=== PATIENT | female | born 2000 | race Caucasian/White ===

== ENCOUNTER 2021-10-06 12:02 | Inpatient (IN) ==
[2021-10-06] MEDS ORDERED: Lactated Ringers 1000 ml BAG 1,000 ML IV ONE ×2 (13:43→22:41)
[2021-10-06] MEDS ORDERED: Buffered Lidocaine 1% SYRIN 1 ml INTRADERM ONE (13:43)
[2021-10-06 16:57] LABS: Rapid COVID-19 Molecular Undetected (Undetected)
[2021-10-06 17:44] LABS: Urine Benzodiazepine Screen None Detected (None Detect); Urine Cannabinoids Screen None Detected (None Detect); Urine Opiates Screen None Detected (None Detect)
[2021-10-06] MEDS ORDERED: Ondansetron ODT 4 mg TAB 4 MG TAB SL PRN (19:09)
[2021-10-06] MEDS ORDERED: OBEPIDURAL 0 ML EPIDURAL ONE (21:41)
[2021-10-06 21:53] LABS: ABS Lymphocytes 1.2 10^3/ul (1.0-4.8); ABS Monocytes 0.4 10^3/ul (0-0.8); Eosinophil % 0.1 %; Hematocrit 42 % (35-47); Hemoglobin 14.5 g/dL (12.0-16.0); Lymphocyte % 10.4 %; Mean Corpuscular HGB Conc 35 g/dL (31-36); Mean Corpuscular Hemoglobin 32 pg (27-31); Mean Corpuscular Volume 91 fL (80-97); Mean Platelet Volume 8.7 fL (7.4-10.4); Platelet Count 166 10^3/uL (150-450); Red Blood Count 4.56 10^6 /uL (3.70-4.87); Red Cell Distribution Width 13 % (10-15); White Blood Count 11.6 10^3/uL (3.5-10.8)
[2021-10-06] MEDS ORDERED: Ammonia Inhalant 1 EA AMP ONE (22:06)
[2021-10-06] MEDS ORDERED: EPHEDrine (Pressors) 50 MG/ML VIAL ONE (22:22)
[2021-10-06] MEDS ORDERED: Lactated Ringers 1000 ml BAG 500 ML IV PRN (22:41)
[2021-10-06] MEDS ORDERED: Sodium Citrate/Citric Acid LIQ 15 ML UDC PO PRN (22:41)
[2021-10-06] MEDS ORDERED: EPHEDrine (Pressors) 50 MG/ML VIAL IV PUSH PRN ×2 (22:41)
[2021-10-06] MEDS ORDERED: Phenylephrine 40 mcg/mL 10mL (400mcg) SYRINGE IV PUSH PRN ×2 (22:41)
[2021-10-06] MEDS ORDERED: fentaNYL 100 mcg/2 ml 50 MCG/ML VIAL ONE (22:55)
[2021-10-06] MEDS ORDERED: Ropivacaine 300 MG in NS 0.9% 250 ml 240 ML EPIDURAL SCH (23:00)
[2021-10-06] MEDS ORDERED: Lactated Ringers 1000 ml BAG 1,000 ML IV SCH ×2 (23:00)
[2021-10-06 23:36] LABS: Urine Appearance Clear; Urine Bilirubin Negative (Negative); Urine Blood Negative (Negative); Urine Color Yellow; Urine Glucose Negative (Negative); Urine Ketones 2+ (Negative); Urine Nitrite Negative (Negative); Urine Protein 2+(100 mg/dL) (Negative); Urine Specific Gravity 1.021 (1.002-1.030); Urine Urobilinogen Negative (Negative)
[2021-10-06] MEDS ORDERED: Lidocaine 1% w EPI 1:200,000 SDV 30 ML VIAL ONE (23:41)
[2021-10-06 23:45] LABS: Urine Bacteria Absent (Absent); Urine Red Blood Cell Trace(0-2/hpf) (Absent); Urine White Blood Cell Trace(0-5/hpf) (Absent)
[2021-10-07] MEDS ORDERED: Oxytocin in LR 20 UNITS/1,000 ML BAG IVPB ONE (00:39)
[2021-10-07] MEDS ORDERED: Dibucaine 1% OINT 28.35 GM TUBE PR PRN (02:53)
[2021-10-07] MEDS ORDERED: Witch Hazel PAD JAR TOPICAL PRN (02:53)
[2021-10-07] MEDS ORDERED: Oxytocin in LR 20 UNITS/1,000 ML BAG IVPB SCH (03:00)
[2021-10-07] MEDS ORDERED: Lactated Ringers 1000 ml BAG 1,000 ML IV SCH (03:00)
[2021-10-07] MEDS ORDERED: Lidocaine 1% VIAL 10 MG/ML VIAL ONE (07:13)
[2021-10-08 07:26] LABS: ABS Lymphocytes 2.1 10^3/ul (1.0-4.8); ABS Monocytes 0.5 10^3/ul (0-0.8); ABS Neutrophils 5.9 10^3/ul (1.5-7.7); Eosinophil % 0.3 %; Hematocrit 31 % (35-47); Hemoglobin 10.9 g/dL (12.0-16.0); Lymphocyte % 24.5 %; Mean Corpuscular HGB Conc 36 g/dL (31-36); Mean Corpuscular Hemoglobin 33 pg (27-31); Mean Corpuscular Volume 93 fL (80-97); Platelet Count 118 10^3/uL (150-450); Red Blood Count 3.29 10^6 /uL (3.70-4.87); Red Cell Distribution Width 14 % (10-15); White Blood Count 8.5 10^3/uL (3.5-10.8)
[2021-10-09 10:29] VITALS: BP 117/65
[2021-10-09] MEDS ORDERED: Varicella Virus Vaccine Live 0.5 ML VIAL SUBCUT ONE (12:34)
[2021-10-09] MEDS ORDERED: Measles, Mumps,Rubella VACC 0.5 ML/VIAL SUBCUT ONE (12:34)
== END 2021-10-09 14:20 | disposition home or self-care (01) | DRG 560 ==
LOC: MCHOBOUT 12:02 → MCHOB 13:51
PROVIDERS: ADMIT Advanced Practice Midwife; ATTEND Advanced Practice Midwife

== ENCOUNTER 2023-12-21 17:12 | Inpatient (IN) ==
[2023-12-21] MEDS ORDERED: Buffered Lidocaine 1% SYRIN 1 ml INTRADERM ONE (19:00)
[2023-12-21] MEDS ORDERED: Lactated Ringers 1000 ml BAG 1,000 ML IV ONE (19:00)
[2023-12-21] MEDS ORDERED: Lactated Ringers 1000 ml BAG 1,000 ML IV SCH ×2 (19:00→21:00)
[2023-12-21] MEDS ORDERED: Lidocaine 1% VIAL 10 MG/ML 30 ML VIAL INJ PRN (19:00)
[2023-12-21] MEDS ORDERED: Penicillin G Potassium IV 5,000,000 UNITS in NS 0.9% 100 ml BAG 100 ML IVPB ONE (19:00)
[2023-12-21] MEDS ORDERED: Glycerin ADULT 2.4 gm SUPP PR PRN (19:36)
[2023-12-21] MEDS ORDERED: Measles, Mumps,Rubella VACC 0.5 ML/VIAL SUBCUT ONE (19:36)
[2023-12-21] MEDS: Oxytocin in LR 0 MILLI.UNIT/0 ML BAG IV ONE (21:28)
[2023-12-21] MEDS: Witch Hazel PAD JAR TOPICAL PRN (21:44)
[2023-12-21] MEDS: Dibucaine 1% OINT 28.35 GM TUBE PR PRN (21:45)
[2023-12-21 23:00] LABS: Urine Benzodiazepine Screen None Detected (None Detect); Urine Cannabinoids Screen None Detected (None Detect); Urine Opiates Screen None Detected (None Detect)
[2023-12-22 12:34] LABS: ABS Lymphocytes 1.6 10^3/uL (1.0-4.8); ABS Monocytes 0.5 10^3/uL (0.0-0.9); ABS Neutrophils 6.1 10^3/uL (1.5-7.6); ABS Nucleated RBC 0.01 10^3/ul; Eosinophil % 0.2 %; Hematocrit 36.3 % (35-45); Hemoglobin 12.5 g/dL (11.5-14.3); Lymphocyte % 19.1 %; Mean Corpuscular Hgb Conc 34.5 g/dL (31-36); Mean Corpuscular Volume 89.8 fL (80-97); Mean Platelet Volume 8.7 fL (7.5-11.2); Nucleated Red Blood Cells % 0.1 %/100WBC (0.0-0.8); Platelet Count 164 10^3/uL (150-450); Red Blood Count 4.04 10^6/uL (3.63-4.92); Red Cell Distribution Width 14.5 % (12-17); White Blood Count 8.1 10^3/uL (3.8-11.8)
[2023-12-23 08:49] VITALS: BP 124/76
== END 2023-12-23 19:00 | disposition home or self-care (01) | DRG 560 ==
LOC: MCHOBOUT 17:12 → MCHOB 18:44
PROVIDERS: ADMIT Midwife; ATTEND Midwife